=== PATIENT | female | born 1990 | race American Indian/Alaskan Native ===

== ENCOUNTER 2019-11-09 02:15 | Emergency (ER) | payer MEDICAID ==
--- NOTE | 2019-11-09 04:28 | Emergency Department Report ---
ED Fall HPI - General Chief Complaint: Wound/Laceration Stated Complaint: FACIAL INJURY Source: patient Mode of arrival: Ambulatory - History of Present Illness Initial Comments: Patient is a 29-year-old -[place] female with no past medical history who presents to the ED with complaint of acute onset persistent severe headache, right facial multiple abrasions and swelling for 3 hours after she slipped and fell from her boyfriend shoulder who had hoisted her, and she landed on her face on a carpeted floor. Patient denies loss of consciousness, dizziness, nausea and vomiting, vision changes, neck pain, chest pain or shortness of breath, seizures or syncope, back pain or numbness and tingling or weakness of upper and lower extremities bilaterally. Patient states that they had been drinking at home when this happened. MD Complaint: fall, other (facial abrasions and selling; headache) -: Sudden, hour(s) (3) Fall From: from height (distance) (feet) When Fall Occurred: 1-3 hours [employer]OMER [employer]LY[employer] Fall Witnessed: yes, by family Place Fall Occurred: home Loss of Consciousness: none Prolonged Down Time?: no Symptoms Prior to Fall: other (intoxicated on alcohol, fell when being carried by boyfriend) Location: head, face Severity: severe Severity scale (0 -10): 7 Quality: sharp, aching Context: tripped/slipped, alcohol use, other (Being hoisted by boyfriend, fell from his shoulder and landed on face on carpeteded floor) Associated Symptoms: denies, headache, other (facial abrasions and swelling). denies: neck pain, numbness, weakness, chest paint, shortness of breath, abdominal pain, hematuria, unable to walk, lightheaded, vertigo, confusion - Related Data Allergies Allergy/AdvReac Type Severity Reaction Status Date / Time No Known Allergies Allergy Unverified 11/09/19 02:27 ED Review of Systems ROS: Stated complaint: FACIAL INJURY Other details as noted in HPI Constitutional: denies: chills, fever Eyes: other (right frontal and maxillary multiple abrasions and swelling). denies: eye pain, eye discharge, vision change ENT: denies: ear pain, throat pain, dental pain, epistaxis, congestion Respiratory: denies: cough, shortness of breath, wheezing Cardiovascular: denies: chest pain, palpitations, syncope Endocrine: no symptoms reported Gastrointestinal: denies: abdominal pain, nausea, vomiting, diarrhea Genitourinary: denies: urgency, dysuria, discharge Musculoskeletal: arthralgia. denies: back pain, joint swelling Skin: denies: rash, lesions Neurological: headache. denies: weakness, paresthesias Psychiatric: denies: anxiety, depression Hematological/Lymphatic: denies: easy bleeding, easy bruising ED Past Medical Hx - Past Medical History Previous Medical History?: Yes Hx Hypertension: Yes - Surgical History Past Surgical History?: Yes Additional Surgical History: Dental, Lasik - Social History Smoking Status: Current Every Day Smoker Substance Use Type: Alcohol ED Physical Exam - General Limitations: No Limitations General appearance: alert, in no apparent distress - Head Head exam: Present: other (Multiple right frontal and maxillary abrasions and right supraorbital swelling and tenderness) - Eye Eye exam: Present: normal appearance, PERRL (Bilaterally), EOMI (Bilaterally without entrapment or nystagmus), periorbital swelling (mild right supraorbital swelling and tenderness), periorbital tenderness (mild right periorbital swelling and tenderness), other (No entrapment or vision loss; no nystagmus or hyphema; ) Pupils: Present: normal accommodation - ENT ENT exam: Present: normal exam, normal orophraynx, mucous membranes moist, TM's normal bilaterally, normal external ear exam - Neck Neck exam: Present: normal inspection, full ROM. Absent: tenderness, meningismus, lymphadenopathy, thyromegaly - Respiratory Respiratory exam: Present: normal lung sounds bilaterally. Absent: respiratory distress, wheezes, rales, rhonchi, chest wall tenderness, accessory muscle use, decreased breath sounds - Cardiovascular Cardiovascular Exam: Present: regular rate, normal rhythm, normal heart sounds. Absent: systolic murmur, diastolic murmur, rubs, gallop - GI/Abdominal GI/Abdominal exam: Present: soft, normal bowel sounds. Absent: tenderness, guarding, hyperactive bowel sounds, hypoactive bowel sounds - Extremities Exam Extremities exam: Present: normal inspection, full ROM, normal capillary refill - Back Exam Back exam: Present: normal inspection, full ROM. Absent: tenderness, muscle spasm, paraspinal tenderness - Neurological Exam Neurological exam: Present: alert, oriented X3, CN II-XII intact, normal gait, reflexes normal - Psychiatric Psychiatric exam: Present: normal affect, normal mood - Skin Skin exam: Present: warm, dry, intact, normal color, abrasion (Multiple facial and frontal scalp abrasions). Absent: rash ED Course Vital Signs 11/09/19 02:20 Temperature 98.9 F Pulse Rate 97 H Respiratory 18 Rate Blood Pressure 151/96 O2 Sat by Pulse 100 Oximetry ED Medical Decision Making - Radiology Data Radiology results: report reviewed, image reviewed Findings [facility] [address] [place] [address] Cat Scan Report Signed Patient: AUDRA KEATING MR#: [id number] : 1990 Acct:[id number] Age/Sex: 29 / F ADM Date: 11/09/19 Loc: ED Attending Dr: Ordering Physician: CORIE DAVIDSON Date of Service: 11/09/19 Procedure(s): CT head/brain wo con Accession Number(s): [id number] cc: CORIE DAVIDSON CT HEAD WITHOUT CONTRAST INDICATION : Head injury after fall. TECHNIQUE: Axial, coronal and sagittal CT imaging was performed from the skull apex through the skull base without contrast. All CT scans at this location are performed using CT dose reduction for ALARA by means of automated exposure control. COMPARISON: None available. FINDINGS: PARENCHYMA: No mass, midline shift, hemorrhage, extraaxial collection or acute territorial infarction. VENTRICLES: Symmetric and normal in size. SOFT TISSUES: No significant abnormality of the included soft tissues/orbits. BONES: No acute osseous abnormality. SINUSES: There is partial opacification of the ethmoid air cells. The remaining sinuses and mastoid air cells are clear. ADDITIONAL FINDINGS: None. IMPRESSION: No acute intracranial abnormality. Signer Name: Harshad Duran MD Signed: 11/09/2019 4:53 AM Workstation Name: [id number] Transcribed By: [place] Dictated By: Harshad Duran MD Electronically Authenticated By: Harshad Duran MD Signed Date/Time: 11/09/19452 DD/ 1 TD/TT: Findings [facility] [address] [place] [address] Cat Scan Report Signed Patient: AUDRA KEATING MR#: [id number] : 1990 Acct:[id number] Age/Sex: 29 / F ADM Date: 11/09/19 Loc: ED Attending Dr: Ordering Physician: CORIE DAVIDSON Date of Service: 11/09/19 Procedure(s): CT facial bones wo con Accession Number(s): [id number] cc: CORIE DAVIDSON CT MAXILLOFACIAL WITHOUT CONTRAST INDICATION: Head and facial injuries with pain after fall. TECHNIQUE: Noncontrast axial, coronal and sagittal CT imaging was performed through the face. All CT scans at this location are performed using CT dose reduction for ALARA by means of automated exposure control. COMPARISON: None available. FINDINGS: FACIAL BONES: There is a minimally displaced fracture of the medial wall of the right orbit. No additional significant abnormality. PARANASAL SINUSES: The ethmoid air cells are partially opacified. The remaining sinuses and mastoid air cells are clear. ORBITS: There is mild right periorbital edema. No additional significant abnormality. VISUALIZED INTRACRANIAL STRUCTURES: No significant abnormality. ADDITIONAL FINDINGS: None. IMPRESSION: Acute right orbital fracture as above. Signer Name: Harshad Duran MD Signed: 11/09/2019 4:56 AM Workstation Name: [id number] Transcribed By: MN Dictated By: Harshad Duran MD Electronically Authenticated By: Harshad Duran MD Signed Date/Time: 11/09/19455 DD/ 2 TD/TT: - Medical Decision Making This is a 29-year-old female who presented to the ED with complaint of persistent severe headache, right maxillary and frontal scalp swelling and multiple abrasions after she fell off her boyfriend's shoulder who had hoisted from a sitting position, and landed on a carpeted floor. In the ED, patient is alert and oriented x3 and is not in any distress but appears intoxicated on alco hol. Patient was treated in the ED for pain and also had head CT scan and facial bone CT scan without contrast performed. The maxillofacial CT scan without contrast shows a minimally displaced fracture of the medial wall of the right orbit. No other additional significant abnormality. The ethmoid air cells are partially opacified. The remaining sinuses and mastoid air cells are clear. ORBITS: There is mild right periorbital edema. No additional significant abnormality. Head CT scan without contrast shows no acute intracranial abnormality or hemorrhage. There is however a partial opacification of the ethmoid air cells. The remaining sinuses and mastoid air cells are clear. I discussed these findings with the ED attending physician Dr. Castaneda who advised that the [facility] transfer center be consulted and have the case discussed with the facial trauma surgeon on-call for further direction. Therefore paged and discussed the patient's case with the [place] facial trauma surgeon Dr. Naranjo who accepted the patient and advised that the patient be transferred to the [facility] ED for further evaluation. The plan of care was discussed with the patient and the patient accepted to be transferred to [place] ED for evaluation. - Differential Diagnosis facial bone fractures; facial abrasion; scalp contusion; facial contusion; Critical care attestation.: If time is entered above; I have spent that time in minutes in the direct care of this critically ill patient, excluding procedure time. ED Disposition Clinical Impression: Fracture of right orbital wall Acute post-traumatic headache Qualifiers: Intractability: not intractable Qualified Code(s): G44.319 - Acute post- traumatic headache, not intractable Contusion of face, scalp and neck Qualifiers: Encounter type: initial encounter Qualified Code(s): S00.83XA - Contusion of other part of head, initial encounter Disposition: DC/TX-70 ANOTHER TYPE HLTHCARE Is pt being admited?: No Does the pt Need Aspirin: No Condition: Stable Referrals: PRIMARY CARE,MD [Primary Care Provider] - 3-5 Days Forms: Work/School Release Form(ED) Time of Disposition: 06:31 Print Language: FRISIAN
[2019-11-09] MEDS: NEOMY 3.5 MG/BACIT 400 UNITS/POLY B 5000 UNITS/GM OINT PACKET TP ONE (04:49)
[2019-11-09] MEDS: ACETAMINOPHEN 500 MG TAB PO ONE (04:49)
[2019-11-09] MEDS: TETANUS,DIPH,PERTUSS(ACELL) VACCINE 0.5 ML SYRINGE IM ONE (04:50)
--- NOTE | 2019-11-09 04:57 | Cat Scan Report ---
CT HEAD WITHOUT CONTRAST INDICATION : Head injury after fall. TECHNIQUE: Axial, coronal and sagittal CT imaging was performed from the skull apex through the skul l base without contrast. All CT scans at this location are performed using CT dose reduction for ALA RA by means of automated exposure control. COMPARISON: None available. FINDINGS: PARENCHYMA: No mass, midline shift, hemorrhage, extraaxial collection or acute territorial infarctio n. VENTRICLES: Symmetric and normal in size. SOFT TISSUES: No significant abnormality of the included soft tissues/orbits. BONES: No acute osseous abnormality. SINUSES: There is partial opacification of the ethmoid air cells. The remaining sinuses and mastoid a ir cells are clear. ADDITIONAL FINDINGS: None. IMPRESSION: No acute intracranial abnormality. Signer Name: Harshad Duran MD Signed: 11/09/2019 4:53 AM Workstation Name: [id number]
--- NOTE | 2019-11-09 05:00 | Cat Scan Report ---
CT MAXILLOFACIAL WITHOUT CONTRAST INDICATION: Head and facial injuries with pain after fall. TECHNIQUE: Noncontrast axial, coronal and sagittal CT imaging was performed through the face. All CT scans at [facility] are performed using CT dose reduction for ALARA by means of automated exposure control. COMPARISON: None available. FINDINGS: FACIAL BONES: There is a minimally displaced fracture of the medial wall of the right orbit. No addit ional significant abnormality. PARANASAL SINUSES: The ethmoid air cells are partially opacified. The remaining sinuses and mastoid a ir cells are clear. ORBITS: There is mild right periorbital edema. No additional significant abnormality. VISUALIZED INTRACRANIAL STRUCTURES: No significant abnormality. ADDITIONAL FINDINGS: None. IMPRESSION: Acute right orbital fracture as above. Signer Name: Harshad Duran MD Signed: 11/09/2019 4:56 AM Workstation Name: [id number]
[2019-11-09 07:18] VITALS: BP 147/88
== END 2019-11-09 07:45 | disposition other institution (70) ==
LOC: ED 02:15
DX: S02.85XA Fracture of orbit, unspecified, initial encounter for closed fracture (principal); S00.83XA Contusion of other part of head, initial encounter; G44.319 Acute post-traumatic headache, not intractable; I10 Essential (primary) hypertension; F17.200 Nicotine dependence, unspecified, uncomplicated; W19.XXXA Unspecified fall, initial encounter; Y93.89 Activity, other specified; Y92.89 Other specified places as the place of occurrence of the external cause; Y99.8 Other external cause status
CPT/HCPCS: 70450; 70486; 90471; 90715; A6250